=== PATIENT | male | born 1955 | race Caucasian/White ===

== ENCOUNTER 2018-05-25 21:02 | Inpatient (IN) | payer MEDICAID ==
[2018-05-25 22:11] LABS: BASOPHILS 0.3 % (0-2); EOSINOPHILS 2.4 % (0-7); HEMOGLOBIN 14.1 g/dL (13.5-17.5); IMMATURE GRANULOCYTES 0.4 % (0-5); LYMPHOCYTES 16.5 % (15-50); MCHC 34.4 g/dL (31.0-37.0); MCV 93.2 fL (80.0-100.0); MEAN PLATELET VOLUME 9.6 fL (7.4-10.4); MONOCYTES 10.4 % (2-11); PLATELET COUNT 240 10x3/uL (130-400); RDW 14.9 % (11.5-14.5); WBC 9.8 10x3/uL (4.8-10.8)
[2018-05-25 22:26] LABS: ALBUMIN 3.3 g/dL (3.4-5.0); ANION GAP 16.6 mmol/L (8-16); BILIRUBIN - TOTAL 0.18 mg/dL (0.2-1.3); CALCIUM 7.9 mg/dL (8.5-10.1); CARBON DIOXIDE 23.5 mmol/L (21.0-32.0); CREATININE - SERUM 1.2 mg/dL (0.6-1.3); POTASSIUM - SERUM 4.1 mmol/L (3.5-5.1); PROTEIN - SERUM 6.5 g/dL (6.4-8.2)
[2018-05-26] VITALS (8 sets, daily range): BP systolic 116–142; BP diastolic 63–84; BMI 32.0
[2018-05-26 06:28] LABS: ALBUMIN 3.2 g/dL (3.4-5.0); ANION GAP 14.2 mmol/L (8-16); BILIRUBIN - TOTAL 0.26 mg/dL (0.2-1.3); CALCIUM 7.8 mg/dL (8.5-10.1); CARBON DIOXIDE 25.4 mmol/L (21.0-32.0); CREATININE - SERUM 1.1 mg/dL (0.6-1.3); POTASSIUM - SERUM 3.6 mmol/L (3.5-5.1); PROTEIN - SERUM 6.1 g/dL (6.4-8.2)
[2018-05-26 06:34] LABS: BASOPHILS 0.3 % (0-2); HEMOGLOBIN 13.3 g/dL (13.5-17.5); IMMATURE GRANULOCYTES 0.3 % (0-5); LYMPHOCYTES 27.4 % (15-50); MCH 31.9 pg (26.0-34.0); MCHC 34.1 g/dL (31.0-37.0); MCV 93.5 fL (80.0-100.0); MEAN PLATELET VOLUME 9.9 fL (7.4-10.4); MONOCYTES 11.2 % (2-11); NEUTROPHILS 57.8 % (40-80); PLATELET COUNT 249 10x3/uL (130-400); RBC 4.17 10x6/uL (4.20-6.10); RDW 15.2 % (11.5-14.5)
[2018-05-27] VITALS: BP 133/72
[2018-05-27 04:00] VITALS: BP 130/80
[2018-05-27 05:37] LABS: BASOPHILS 0.6 % (0-2); EOSINOPHILS 7.1 % (0-7); HEMATOCRIT 40.1 % (42.0-54.0); HEMOGLOBIN 13.7 g/dL (13.5-17.5); IMMATURE GRANULOCYTES 0.3 % (0-5); LYMPHOCYTES 38.1 % (15-50); MCH 31.8 pg (26.0-34.0); MCHC 34.2 g/dL (31.0-37.0); MEAN PLATELET VOLUME 10.2 fL (7.4-10.4); MONOCYTES 13.4 % (2-11); NEUTROPHILS 40.5 % (40-80); PLATELET COUNT 244 10x3/uL (130-400); RBC 4.31 10x6/uL (4.20-6.10); RDW 14.9 % (11.5-14.5)
[2018-05-27 05:43] LABS: WBC 6.6 10x3/uL (4.8-10.8)
[2018-05-27 05:59] LABS: ALBUMIN 3.1 g/dL (3.4-5.0); ALKALINE PHOSPHATASE 64 U/L (46-116); ALT (SGPT) 69 U/L (10-68); BILIRUBIN - TOTAL 0.48 mg/dL (0.2-1.3); CALC OSMOLALITY 282 mosm/kg (275-300); CALCIUM 8.5 mg/dL (8.5-10.1); CARBON DIOXIDE 24.3 mmol/L (21.0-32.0); CHLORIDE - SERUM 107 mmol/L (98-107); GLUCOSE 94 mg/dL (74-106); POTASSIUM - SERUM 3.8 mmol/L (3.5-5.1); PROTEIN - SERUM 6.3 g/dL (6.4-8.2); SODIUM 142 mmol/L (136-145); UREA NITROGEN 12 mg/dL (7-18); eGFR NON AFRICAN AMERICAN 81 mL/min (90-120)
[2018-05-27 08:06] VITALS: BP 115/64
[2018-05-27] MEDS ORDERED: ZITHROMAX500 MG PO (11:21)
[2018-05-27] MEDS ORDERED: OMNICEF300 MG PO (11:21)
--- NOTE | 2018-05-27 15:25 | MORECARE ---
CASE MANAGEMENT DISCHARGE SUMMARY PATIENT: DEANNA CARLSON UNIT: [id number] ADM DATE: 05/25/18 AGE: 62 : 57 SEX: M ROOM/BED: D.2106 AUTHOR: ADAM SCHULTE PHYSICIAN: REFERRING PHYSICIAN: VERENICE ACEVEDO MD DATE OF SERVICE: 05/27/18 Discharge Plan Patient Name: DEANNA CARLSON Facility: [facility]:[place] : 1955 Planned Disposition: Home Anticipated Discharge Date: 05/27/18 Discharge Date: 05/27/2018 Expected LOS: 2 Initial Reviewer: [email or web address] Initial Review Date: 05/27/2018 Generated: 05/27/18 4:25 pm Comments DCP- Discharge Planning Updated by [email or web address]: Raheem Estrada on 05/27/18 2:[address] Patient Name: DEANNA CARLSON Admission Status: ER Accout number: [id number] Admission Date: 05-25-2018 : 1955 Admission Diagnosis: Attending: VERENICE ACEVEDO Current LOS: 2 Anticipated DC Date: 05-27-2018 Planned Disposition: Home Primary Insurance: MEDICAID [place] Discharge Planning Comments: CM MET WITH PT IN ROOM TO DISCUSS DISCHARGE PLANNING AND NEEDS. PT REPORTS LIVING AT HOME INDEPENDENTLY AND ALONE. PT HAS [facility] FROM [facility]. PT HAS NO OUTSIDE SERVICES ASSISTING IN THE HOME. CM DISCUSSED AVAILABILITY OF HOME HEALTH, REHAB SERVICES AND MEDICAL EQUIPMENT. CM DISCUSSED AVAILABILTY OF ALCOHOL TREATMENT SERVICES AND LOCAL SUPPORT ORGANIZATIONS. PT REPORTS HAVING BEEN TO TREATMENT THROUGH [facility], ATTEND [facility]ET[facility] IN [place]. PT REPORTS TWO MONTHS SOBRIETY AND JUST MESSED UP AND BOUGHT A PINT OF WHISKEY AND DRANK IT. PT DENIES DISCHARGE NEEDS, REPORTS HE IS CALLING A TAXI TO PICK HIM UP FOR DISCHARGE HOME. PT REPORTS HAVING FUNDS FOR TAXI BUT NOT THE NUMBER. CM PROVIDED PT WITH NUMBER TO [place] [employer]. RECYCLING DIRECTOR NURSE NOTIFIED. Meal Temperer: Raheem Estraad DCPIA - Discharge Planning Initial Assessment Updated by [email or web address]: Raheem Estrada on 05/27/18 3:17 pm * Is the patient Alert and Oriented? Yes * How many steps to enter\exit or inside your home? NONE * [facility] [place] * [facility] * Preadmission Environment Home Alone * ADLs Independent * Equipment CPAP * Other Equipment [facility], MEDICAL EQUIPMENT PROVIDER * List name and contact numbers for known caregivers / representatives who currently or will assist patient after discharge: BROTHER HENLEY, * Verbal permission to speak to the caregivers and representatives has been obtained from the patient. N/A * Community resources currently utilized Other * Please name any agencies selected above. [facility] MEETINGS IN [place] * Additional services required to return to the preadmission environment? No * Can the patient safely return to the preadmission environment? Yes * Has this patient been hospitalized within the prior 30 days at any hospital? No Patient Name: DEANNA CARLSON Page [id number] at 1525 All edits/amendments must be made on the electronic document DICTATION DATE: 05/27/18 1525 FINISHER DENTURE: TAPAN 05/27/18 1525 RPT#: [id number] DC DATE:05/27/18 STATUS: DIS IN [address] [place] [address] END OF REPORT
== END 2018-05-27 13:01 | disposition home or self-care (01) | DRG 195 ==
LOC: D.ER 21:02 → D.M2 23:21
PROVIDERS: Family Medicine; ADMIT Internal Medicine Nephrology
DX: J18.9 Pneumonia, unspecified organism (principal); F10.10 Alcohol abuse, uncomplicated; F41.9 Anxiety disorder, unspecified